=== PATIENT | female | born 1995 | race Two or more races ===

== ENCOUNTER 2024-12-21 16:20 | Emergency (ER) | payer OTHER ==
[~2024-12-21] VITALS: Ht 160 cm; Wt 54.4 kg
[2024-12-21 16:41] VITALS: BP 133/92; TEMP 98
[2024-12-21] MEDS ORDERED: ONDA4TAB5 PO (17:57)
[2024-12-21] MEDS ORDERED: ONDANSETRON 4 MG TAB.RAPDIS ONE (18:20)
[2024-12-21] MEDS: ONDANSETRON 4 MG TAB.RAPDIS PO ONE (18:22)
[2024-12-21 18:25] VITALS: O2SAT 98
== END 2024-12-21 18:26 | disposition home or self-care (01) ==
LOC: ER 16:40
DX: R11.2 Nausea with vomiting, unspecified (principal); R42 Dizziness and giddiness
CPT/HCPCS: 99284; 93005; 84703; 82962; Q0162

== ENCOUNTER 2025-02-15 11:56 | Emergency (ER) | payer MEDICAID, OTHER ==
[~2025-02-15] VITALS: Ht 162.6 cm; Wt 59.0 kg
[~2025-02-15 11:56] MED LIST: ONDA4TAB5 PO
[2025-02-15 12:02] VITALS: TEMP 98.4
[2025-02-15 12:24] LABS: APPEARANCE,URINE CLEAR (CLEAR); BILIRUBIN,URINE NEGATIVE (NEGATIVE); BLOOD, URINE TRACE-INTA Ery/uL (NEGATIVE); COLOR,URINE YELLOW (YELLOW); KETONES,URINE NEGATIVE (NEGATIVE); LEUKOCYTE ESTERASE ,URINE NEGATIVE (NEGATIVE); NITRITE, URINE NEGATIVE (NEGATIVE); PROTEIN,URINE NEGATIVE (NEGATIVE); UGLUCOSE NEGATIVE (NEGATIVE)
[2025-02-15 12:26] LABS: PREGNANCY TEST URINE QUAL NEGATIVE (NEGATIVE)
[2025-02-15 12:26] LABS: BASOPHILS # (AUTO) 0.1 K/uL (0.0-0.2); BASOPHILS % (AUTO) 0.8 % (0.0-2.0); EOSINOPHILS # (AUTO) 0.1 K/uL (0.0-0.7); EOSINOPHILS % (AUTO) 0.8 % (0.0-6.0); HEMATOCRIT 36 % (33-45); HEMOGLOBIN 11.8 g/dL (11.5-14.8); LYMPHOCYTES # (AUTO) 2.4 K/uL (0.8-4.8); LYMPHOCYTES % (AUTO) 26.6 % (20.0-44.0); MEAN CORPUSCULAR HEMOGLOBIN 28 PG (26.0-33.0); MEAN CORPUSCULAR HGB CONC 33 g/dl (31.0-36.0); MEAN CORPUSCULAR VOLUME 87 fL (82-100); MONOCYTES # (AUTO) 0.5 K/uL (0.1-1.30); MONOCYTES % (AUTO) 5.9 % (2.0-12.0); NEUTROPHILS # (AUTO) 5.9 K/uL (1.8-8.9); NEUTROPHILS % (AUTO) 65.9 % (43.0-81.0); PLATELET COUNT (AUTO) 275 K/uL (150-450); RED CELL DISTRIBUTION WIDTH 12.9 % (11.5-15.0); WHITE BLOOD COUNT (AUTO) 8.9 K/uL (4.3-11.0)
[2025-02-15 12:29] LABS: ADD URINE CULTURE NO; BACTERIA,URINE Few /HPF (None Seen)
[2025-02-15] MEDS ORDERED: MORPHINE SULFATE INJ 2 MG/ML DISP.SYRIN ONE ×2 (12:30→14:09)
[2025-02-15] MEDS ORDERED: ONDANSETRON HCL/PF 4 MG/2 ML VIAL ONE ×2 (12:30→14:09)
[2025-02-15 12:32] LABS: CALCIUM, SERUM 8.9 mg/dL (8.5-10.1); CREATININE 0.7 mg/dL (0.6-1.3); POTASSIUM 3.8 mmol/L (3.5-5.1)
[2025-02-15 12:38] LABS: ALBUMIN 4.1 g/dL (3.4-5.0); BILIRUBIN,DIRECT 0.2 mg/dL (0.0-0.2); BILIRUBIN,TOTAL 0.8 mg/dL (0.2-1.0); TOTAL PROTEIN, SERUM 7.5 g/dL (6.4-8.2)
[2025-02-15] MEDS: ONDANSETRON HCL/PF 4 MG/2 ML VIAL IV ONE ×2 (12:40→14:10)
[2025-02-15] MEDS: MORPHINE SULFATE INJ 2 MG/ML DISP.SYRIN IV ONE ×2 (12:44→14:15)
[2025-02-15] MEDS ORDERED: HYDR-4303 PO (13:52)
[2025-02-15] MEDS ORDERED: DOXY100C2 PO (13:52)
[2025-02-15] MEDS ORDERED: ONDA4TAB5 PO (13:52)
[2025-02-15] MEDS ORDERED: CEFTRIAXONE 1GM BAG (ER ONLY) 50 ML IV ONE (14:09)
[2025-02-15] MEDS: CEFTRIAXONE 1 G in IV D5W 50 ML IV ONE (14:11)
[2025-02-15 15:21] VITALS: BP 116/60; O2SAT 99
== END 2025-02-15 14:50 | disposition home or self-care (01) ==
LOC: ER 12:04
DX: K62.89 Other specified diseases of anus and rectum (principal); N83.202 Unspecified ovarian cyst, left side; R10.31 Right lower quadrant pain; R11.2 Nausea with vomiting, unspecified; F19.10 Other psychoactive substance abuse, uncomplicated; Z87.442 Personal history of urinary calculi
CPT/HCPCS: 99285; 74176; 96365; 76856; 96375; 96376; 85025; 80048; 83690; 80076; 81001; 36415; 84703 ×2; J0696 ×2; J2405 ×2; J7060; J2270 ×2